=== PATIENT | male | born 1960 | race Caucasian/White ===

== ENCOUNTER 2023-01-11 07:57 | Emergency (ER) | payer OTHER, SELFPAY ==
[2023-01-11 08:01] VITALS: BP 158/110; PULSE 77; RESP 22; TEMP 36.7; O2SAT 95; BMI 32.5
--- NOTE | 2023-01-11 08:08 | XR_ITS ---
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 Chest is otherwise negative. Electronically authenticated by: SHARON LAUGHLIN Date: 01/11/2023 08:29
--- NOTE | 2023-01-11 08:08 | ECG_ITS ---
[facility] Test Date: 2023-01-11 Pat Name: Avery Nogueira Department: Room: - Gender: Male [employer]: : 1960 Requested By: Order Number: [id number] Reading MD: BERNARDO MCKEON Measurements Intervals [place] Rate: 75 P: 16 MO: 180 QRS: 19 QRSD: 78 T: 15 QT: 346 QTc: 375 Interpretive Statements 1100 Sinus rhythm 4068 Nonspecific Twave abnormality 9130 borderline ECG No previous ECG available for comparison Electronically Signed On 01-11-2023 15:42:37 EDT by BERNARDO MCKEON
[2023-01-11 08:15] VITALS: BP 152/99; PULSE 75; PULSE 80; RESP 22; O2SAT 95
[2023-01-11 08:24] LABS: Basophils Absolute Auto 0.1 10^3/uL (0.0-0.1); Basophils Percent Auto 0.5 % (0.2-2.0); Eosinophils Absolute Auto 0.1 10^3/uL (0.0-0.7); Eosinophils Percent Auto 1.5 % (0.9-7.0); Hematocrit 41.9 % (42.0-54.0); Hemoglobin 14.1 g/dL (14.0-18.0); Immature Granulocytes Abs Auto 0.18 10^3/uL (0.00-0.03); Immature Granulocytes Pct Auto 1.9 % (0.0-0.5); Lymphocytes Absolute Auto 2.2 10^3/uL (1.2-3.8); Lymphocytes Percent Auto 22.5 % (20.5-60.0); Mean Corpuscular HGB Conc 33.7 g/dL (29.9-35.2); Mean Corpuscular Hemoglobin 32.6 pg (25.9-34.0); Mean Corpuscular Volume 96.8 fL (80.0-94.0); Mean Platelet Volume 10.2 fL (9.5-13.5); Monocytes Absolute Auto 0.9 10^3/uL (0.3-0.8); Monocytes Percent Auto 9.5 % (1.7-12.0); Neutrophils Absolute Auto 6.2 10^3/uL (1.4-6.5); Neutrophils Percent Auto 64.1 % (43.0-75.0); Platelet Count 177 10^3/uL (150-450); Red Blood Count 4.33 10^6/uL (4.70-6.10); Red Cell Distribution Width 12.6 % (11.0-15.0); White Blood Count 9.7 10^3/uL (4.0-11.0)
[2023-01-11 08:37] LABS: Alanine Aminotransferase 24 U/L (16-63); Albumin Globulin Ratio 1.1; Albumin Level 3.3 g/dL (3.4-5.0); Alkaline Phosphatase 41 U/L (46-116); Aspartate Amino Transferase 12 U/L (15-37); BUN Creatinine Ratio 11.9; Bilirubin Total 0.6 mg/dL (0.2-1.0); Calcium 8.7 mg/dL (8.5-10.1); Carbon Dioxide 23.4 mmol/L (21.0-32.0); Chloride 105 mmol/L (98-107); Estimated GFR (African America >60 (>=60); Estimated GFR (Non-African Ame >60 (>=60); Glucose 133 mg/dL (74-106); Potassium 3.4 mmol/L (3.5-5.1); Sodium 139 mmol/L (136-145); Total Protein 6.3 g/dL (6.4-8.2); Troponin I High Sensitivity 22.2 pg/mL (4.0-76.1)
--- NOTE | 2023-01-11 08:58 | ED_ITS ---
HPI - SOB/Dyspnea General Chief Complaint: Shortness of Breath/Dyspnea Stated Complaint: SHOTNESS OF BREATH Time Seen by Provider: 01/11/23 08:58 Source: patient Source comment: pt states shortness of breath started yesterday Mode of arrival: walk-in Limitations: no limitations History of Present Illness HPI Narrative: Patient presents to emergency department complaining of dyspnea. Patient states the last 2 days since her more short of breath than normal. He denies any upper respiratory infection symptoms. He denies any cough. He denies any chest pain. He states last night he felt more short of breath and has noted some diaphoresis. Patient states he has a history of myasthenia gravis. He was admitted several months ago with the same symptoms and was given an infusion of IV immunoglobulin. Patient denies any fever. He denies any nausea, vomiting, diarrhea, constipation, abdominal pain. He states her legs are slightly edematous. He denies any previous cardiac disease. He denies any history of lung disease. Patient states he is on Pyridostigmine 60 mg twice a day and prednisone was recently decreased from 40 mg to 30 mg daily. Patient's neurologist is at [facility]. He denies any throat swelling, difficulty swallowing. pt denies any trauma. Related Data Home Medications Medication Instructions Recorded Confirmed pantoprazole 20 mg tablet,delayed 20 mg PO DAILY 01/11/23 01/11/23 release prednisone 20 mg tablet 20 mg PO Q12H 01/11/23 01/11/23 pyridostigmine bromide 60 mg tablet 60 mg PO .q12 01/11/23 01/11/23 sulfamethoxazole 800 1 tab PO .every other day 01/11/23 01/11/23 mg-trimethoprim 160 mg tablet Previous Rx's Medication Instructions Recorded prednisone 20 mg tablet 20 mg PO BID #10 tabs 01/11/23 Allergies Allergy/AdvReac Type Severity Reaction Status Date / Time morphine AdvReac Severe Vomiting Verified 01/11/23 08:07 Review of Systems ROS Narrative ROS: Unless otherwise stated in this report the patient's positive and negative responses for review of systems for constitutional, eyes, ENT, cardiovascular, respiratory, gastrointestinal, neurological, , musculoskeletal and integument systems and related systems to the presenting problem are either stated in the history of present illness or were not pertinent or were negative for the symptoms and/or complaints related to the presenting medical problem. PFSH PFSH Medical History (Updated 01/11/23 @ 13:25 by Henrietta Maciel MD) Surgical History (Updated 01/11/23 @ 08:12 by Pete Hurst) Social History Smoking status: Never smoker Exam Narrative Exam Narrative: Nurses notes and vital signs reviewed and patient is not hypoxic. General: Nontoxic, Well-appearing and in no apparent distress. Skin: Warm, dry, no pallor noted. No Rash Head: Normocephalic, atraumatic. Neck: Supple, non-tender. Eye: Pupils are equal, round and EOMI. No scleral icterus. Ears, Nose, Mouth, and Throat: TM clear, no posterior oropharynx erythema or nasal mucosal hypertrophy, uvula is mid-line Oral mucosa is moist Cardiovascular: Regular Rate and Rhythm without murmur, gallop or rub. Respiratory: No accessory muscle use or respiratory distress. Lungs are clear to auscultation, no wheezing, rales or rhonchi, Patient is able to count 231 breath without having to stop. Chest Wall: no tenderness Back: No midline thoracic or lumbar vertebral tenderness. No CVA tenderness Musculoskeletal: normal ROM, no calf or popliteal tenderness, +2 bilateral, lower extremity pitting edema/swelling GI: Abdomen is soft, non-distended. Normal bowel sounds. No masses appreciated. No tenderness to palpation. No rebound, guarding, or rigidity noted. Neurological: A&O x4. No cranial nerve dysfunction observed. Patient has persistent when flexing his head forward. There is no muscular weakness to the neck. No airway compromise.No truncal ataxia. Moves all extremities. Sensation intact. Psychiatric: Cooperative and interactive. Normal mood and affect. Constitutional Vital Signs - 24 hr 01/11/23 08:01 01/11/23 08:15 01/11/23 08:15 Temperature 98.0 F Pulse Rate Pulse Rate [Monitor] 77 75 Respiratory Rate 22 22 Blood Pressure Blood Pressure [Left Arm] 158/110 H 152/99 H Pulse Oximetry 95 95 95 Oxygen Delivery Method Room Air Room Air Room Air 01/11/23 12:05 Temperature 97.9 F Pulse Rate 80 Pulse Rate [Monitor] Respiratory Rate 26 H Blood Pressure 140/85 H Blood Pressure [Left Arm] Pulse Oximetry 96 Oxygen Delivery Method Course Vital Signs Vital signs: Vital Signs Temperature 98.0 F 01/11/23 08:01 Pulse Rate 77 01/11/23 08:01 Respiratory Rate 22 01/11/23 08:01 Blood Pressure 158/110 H 01/11/23 08:01 Pulse Oximetry 95 01/11/23 08:01 Oxygen Delivery Method Room Air 01/11/23 08:01 Temperature 97.9 F 01/11/23 12:05 Pulse Rate 75 01/11/23 14:17 Respiratory Rate 14 01/11/23 14:17 Blood Pressure 139/90 H 01/11/23 14:17 Pulse Oximetry 96 01/11/23 12:05 Oxygen Delivery Method Room Air 01/11/23 14:17 MDM - SOB/Dyspnea MDM Narrative Medical decision making narrative: IV established, labs drawn chest x-ray ordered. X-rays unremarkable. Patient was given Solu-Medrol 125 mg IV. Patient stated he was feeling better. He is requesting discharge to home. The patient was discussed with Dr. Humphrey the neurologist on-call for neurology at the [facility] who advised if the patient's vital capacity is greater than 30 he can be discharged and they will see patient as op. She advised to increase the patient's prednisone back to 40mg. Patient's Negative inspiratory inspiratory force was 32. Patient will be placed back on 40 mg of prednisone and follow up with neurology Friday. He is advised to return to the emergency department with any problems or CONCERNS.At this time the patient is without objective evidence of an acute process requiring hospitalization or inpatient management. The patient has remained hemodynamically stable. No additional indication for emergent studies at this time. I answered all questions. Discussed discharge instructions including standard anticipatory guidance and what should prompt a return to the emergency department, including if they get worse are not getting better or develops any new or concerning symptoms. I've given them specific time frame in which to follow-up, and who to follow-up with. The patient demonstrates understanding. Patient is nontoxic and stable for discharge with outpatient follow-up. This note was created with the assistance of a speech recognition program. Although the intention is to generate documents that actually reflects the content of the visit, no guarantees can be provided that every mistake has been identified and corrected by editing. Differential Diagnosis Differential diagnosis: Likely acute exacerbation of chronic obstructive airways disease, congestive heart failure, community acquired pneumonia and pulmonary embolism Lab Data Labs: Lab Results 01/11/23 Range/Units 08:12 WBC 9.7 (4.0-11.0) 10^3/uL RBC 4.33 L (4.70-6.10) 10^6/uL Hgb 14.1 (14.0-18.0) g/dL Hct 41.9 L (42.0-54.0) % MCV 96.8 H (80.0-94.0) fL MCH 32.6 (25.9-34.0) pg MCHC 33.7 (29.9-35.2) g/dL RDW 12.6 (11.0-15.0) % Plt Count 177 (150-450) 10^3/uL MPV 10.2 (9.5-13.5) fL Neut % (Auto) 64.1 (43.0-75.0) % Lymph % (Auto) 22.5 (20.5-60.0) % Reynolds % (Auto) 9.5 (1.7-12.0) % Eos % (Auto) 1.5 (0.9-7.0) % Baso % (Auto) 0.5 (0.2-2.0) % Neut # (Auto) 6.2 (1.4-6.5) 10^3/uL Lymph # (Auto) 2.2 (1.2-3.8) 10^3/uL Reynolds # (Auto) 0.9 H (0.3-0.8) 10^3/uL Eos # (Auto) 0.1 (0.0-0.7) 10^3/uL Baso # (Auto) 0.1 (0.0-0.1) 10^3/uL Sodium 139 (136-145) mmol/L Potassium 3.4 L (3.5-5.1) mmol/L Chloride 105 (98-107) mmol/L Carbon Dioxide 23.4 (21.0-32.0) mmol/L Anion Gap 14.0 BUN 10.0 (7.0-18.0) mg/dL Creatinine 0.84 (0.70-1.30) mg/dL Est GFR ( Amer) >60 (>=60) Est GFR (Non-Af Amer) >60 (>=60) BUN/Creatinine Ratio 11.9 Glucose 133 H (74-106) mg/dL Calcium 8.7 (8.5-10.1) mg/dL Total Bilirubin 0.6 (0.2-1.0) mg/dL AST 12 L (15-37) U/L ALT 24 (16-63) U/L Troponin I High Sens 22.2 (4.0-76.1) pg/mL NT-Pro-B Natriuret Pep 79.0 (<=900.0) pg/mL Total Protein 6.3 L (6.4-8.2) g/dL Albumin 3.3 L (3.4-5.0) g/dL Globulin 3.0 g/dL Albumin/Globulin Ratio 1.[address] scan - chest: Radiologist's impression: No pulmonary embolism ECG Data Interpretation: EKG interpretation: Emergency Department physician interpretation. Normal sinus rhythm at 63 bpm. Normal axis, normal intervals and no ST segment elevation or depression. Nonspecific T-wave flattening II, V3, V4, V5, V6 Discharge Plan Discharge Chief Complaint: Shortness of Breath/Dyspnea Clinical Impression: Dyspnea, Acute exacerbation of myasthenia gravis Patient Disposition: Home, Self-Care Time of Disposition Decision: 13:25 Condition: Good Mode of Transportation: Private Vehicle Prescriptions / Home Meds: New prednisone 20 mg tablet 20 mg PO BID Qty: 10 0RF No Action pantoprazole 20 mg tablet,delayed release (DR/EC) 20 mg PO DAILY prednisone 20 mg tablet 20 mg PO Q12H pyridostigmine bromide 60 mg tablet 60 mg PO .q12 sulfamethoxazole-trimethoprim 800-160 mg tablet 1 tab PO .every other day Instructions: Dyspnea (ED) Stand Alone Forms: Portal Instructions Referrals: FARAZ LUCERO [Primary Care Provider] - 1 week Follow Up Appointments: neurologist Discharge Date/Time: 01/11/23 14:20
[2023-01-11] MEDS: METHYLPREDNISOLONE SOD SUCC PF 125 MG/2 ML VIAL IVP (10:08)
--- NOTE | 2023-01-11 10:20 | CT_ITS ---
[address] [address] Patient Name: DELISA DAVENPORT MRN: [id number] date: 1960 Sex: M Assigned Patient Location: ER Current Patient Location: ER Accession/Order Number: [id number] Exam Date: 01/11/2023 10:38 Report Date: 01/11/2023 11:15 At the request of: MICHAEL ZHANG Procedure: CT angio chest EXAM: CT angio chest; [id number] REASON FOR EXAM: dyspnea TECHNIQUE: Helical CT images of the chest were obtained after the administration of IV contrast. Multiplanar reformats and maximum intensity projection images were created at the scanner. Dose reduction technique used: Automated exposure control and/or adjustment of the mA and/or kV according to patient size and/or use of iterative reconstruction technique. 3-D images were created. COMPARISON: None. FINDINGS: Technical quality: Good. Chest: Support devices: None. Visualized Thyroid: No nodules. Chest wall: Minimal bilateral gynecomastia. Leyda/mediastinum/esophagus: No mass. Thoracic lymph nodes: No enlarged supraclavicular, mediastinal, hilar or axillary lymph nodes. Heart and vasculature: -No pulmonary artery filling defect to suggest pulmonary embolism. -No pericardial effusion or aortic aneurysm. -No aortic dissection. -Mild cardiomegaly. Visualized portions of the upper abdomen: Within normal limits. Musculoskeletal: No acute abnormality or suspicious osseous lesion. 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 Lungs/airways: -No significant nodule or infiltrate. -The central airways are patent. Pleura: No pleural effusion or pneumothorax. IMPRESSION: Negative exam. No pulmonary embolism or any acute cardiopulmonary abnormality demonstrated. Electronically authenticated by: DEVORA BANDA Date: 01/11/2023 11:15
--- NOTE | 2023-01-11 10:24 | PC.NURSE ---
PT WAS RECENTLY DIAGNOSED WITH MYASTHENIA GRAVIS IN MAY 2022
[2023-01-11 12:05] VITALS: BP 140/85; PULSE 80; RESP 26; TEMP 36.6; O2SAT 96
--- NOTE | 2023-01-11 14:06 | ED_ITS ---
HPI - General Adult General Chief complaint: Shortness of Breath/Dyspnea Stated complaint: SHOTNESS OF BREATH Time Seen by Provider: 01/11/23 08:58 Source: patient Mode of arrival: walk-in Limitations: no limitations History of Present Illness HPI narrative: pt states shortness of breath started yesterday. Patient states he has a history of myasthenia gravis. He was taking prednisone 40 mg and his dose was decreased last week and now he states he is feeling worse. He denies any fever, chills, cough, chest pain. Denies any palpitations, diaphoresis. He denies any difficulty swallowing. He denies any nausea, vomiting, diarrhea, constipation, or abdominal pain. He denies any hematuria flank pain, dysuria. Patient denies any fall or trauma. Related Data Home Medications Medication Instructions Recorded Confirmed pantoprazole 20 mg tablet,delayed 20 mg PO DAILY 01/11/23 01/11/23 release prednisone 20 mg tablet 20 mg PO Q12H 01/11/23 01/11/23 pyridostigmine bromide 60 mg tablet 60 mg PO .q12 01/11/23 01/11/23 sulfamethoxazole 800 1 tab PO .every other day 01/11/23 01/11/23 mg-trimethoprim 160 mg tablet Previous Rx's Medication Instructions Recorded prednisone 20 mg tablet 20 mg PO BID #10 tabs 01/11/23 Allergies Allergy/AdvReac Type Severity Reaction Status Date / Time morphine AdvReac Severe Vomiting Verified 01/11/23 08:07 Review of Systems ROS Status of ROS 10 or more systems reviewed and unremarkable except as noted in history and below [facility] Medical History (Updated 01/11/23 @ 13:25 by Henrietta Maciel MD) Surgical History (Updated 01/11/23 @ 08:12 by Pete Hurst) Social History Smoking status: Never smoker Exam Constitutional Vital Signs - 24 hr 01/11/23 08:01 01/11/23 08:15 01/11/23 08:15 Temperature 98.0 F Pulse Rate Pulse Rate [Monitor] 77 75 Respiratory Rate 22 22 Blood Pressure Blood Pressure [Left Arm] 158/110 H 152/99 H Pulse Oximetry 95 95 95 Oxygen Delivery Method Room Air Room Air Room Air 01/11/23 12:05 Temperature 97.9 F Pulse Rate 80 Pulse Rate [Monitor] Respiratory Rate 26 H Blood Pressure 140/85 H Blood Pressure [Left Arm] Pulse Oximetry 96 Oxygen Delivery Method Course Vital Signs Vital signs: Vital Signs Temperature 98.0 F 01/11/23 08:01 Pulse Rate 77 01/11/23 08:01 Respiratory Rate 22 01/11/23 08:01 Blood Pressure 158/110 H 01/11/23 08:01 Pulse Oximetry 95 01/11/23 08:01 Oxygen Delivery Method Room Air 01/11/23 08:01 Temperature 97.9 F 01/11/23 12:05 Pulse Rate 80 01/11/23 12:05 Respiratory Rate 26 H 01/11/23 12:05 Blood Pressure 140/85 H 01/11/23 12:05 Pulse Oximetry 96 01/11/23 12:05 Oxygen Delivery Method Room Air 01/11/23 08:15 Medical Decision Making Lab Data Labs: Lab Results 01/11/23 Range/Units 08:12 WBC 9.7 (4.0-11.0) 10^3/uL RBC 4.33 L (4.70-6.10) 10^6/uL Hgb 14.1 (14.0-18.0) g/dL Hct 41.9 L (42.0-54.0) % MCV 96.8 H (80.0-94.0) fL MCH 32.6 (25.9-34.0) pg MCHC 33.7 (29.9-35.2) g/dL RDW 12.6 (11.0-15.0) % Plt Count 177 (150-450) 10^3/uL MPV 10.2 (9.5-13.5) fL Neut % (Auto) 64.1 (43.0-75.0) % Lymph % (Auto) 22.5 (20.5-60.0) % Terrell % (Auto) 9.5 (1.7-12.0) % Eos % (Auto) 1.5 (0.9-7.0) % Baso % (Auto) 0.5 (0.2-2.0) % Neut # (Auto) 6.2 (1.4-6.5) 10^3/uL Lymph # (Auto) 2.2 (1.2-3.8) 10^3/uL Terrell # (Auto) 0.9 H (0.3-0.8) 10^3/uL Eos # (Auto) 0.1 (0.0-0.7) 10^3/uL Baso # (Auto) 0.1 (0.0-0.1) 10^3/uL Sodium 139 (136-145) mmol/L Potassium 3.4 L (3.5-5.1) mmol/L Chloride 105 (98-107) mmol/L Carbon Dioxide 23.4 (21.0-32.0) mmol/L Anion Gap 14.0 BUN 10.0 (7.0-18.0) mg/dL Creatinine 0.84 (0.70-1.30) mg/dL Est GFR ( Amer) >60 (>=60) Est GFR (Non-Af Amer) >60 (>=60) BUN/Creatinine Ratio 11.9 Glucose 133 H (74-106) mg/dL Calcium 8.7 (8.5-10.1) mg/dL Total Bilirubin 0.6 (0.2-1.0) mg/dL AST 12 L (15-37) U/L ALT 24 (16-63) U/L Troponin I High Sens 22.2 (4.0-76.1) pg/mL NT-Pro-B Natriuret Pep 79.0 (<=900.0) pg/mL Total Protein 6.3 L (6.4-8.2) g/dL Albumin 3.3 L (3.4-5.0) g/dL Globulin 3.0 g/dL Albumin/Globulin Ratio 1.1 Discharge Plan Discharge Chief Complaint: Shortness of Breath/Dyspnea Clinical Impression: Dyspnea, Acute exacerbation of myasthenia gravis Patient Disposition: Home, Self-Care Time of Disposition Decision: 13:25 Condition: Good Prescriptions / Home Meds: New prednisone 20 mg tablet 20 mg PO BID Qty: 10 0RF No Action pantoprazole 20 mg tablet,delayed release (DR/EC) 20 mg PO DAILY prednisone 20 mg tablet 20 mg PO Q12H pyridostigmine bromide 60 mg tablet 60 mg PO .q12 sulfamethoxazole-trimethoprim 800-160 mg tablet 1 tab PO .every other day Instructions: Dyspnea (ED) Stand Alone Forms: Portal Instructions Referrals: FARAZ LUCERO [Primary Care Provider] - 1 week Follow Up Appointments: neurologist
[2023-01-11 14:17] VITALS: BP 139/90; PULSE 75; RESP 14
--- NOTE | 2023-01-11 16:25 | RESP.RT ---
NIF performed, patient's best NIF 32;
== END 2023-01-11 14:20 | disposition home or self-care (01) ==
PROVIDERS: Emergency Provider Emergency Medicine; PCP Family Medicine
DX: G70.01 Myasthenia gravis with (acute) exacerbation (principal); R06.02 Shortness of breath; R06.00 Dyspnea, unspecified
CPT/HCPCS: 36415; 71045; 71275; 80053; 83880; 84484; 85025; 93005; 96374; 99285; J2930; Q9967